=== PATIENT | female | born 1945 | race Caucasian/White ===

== ENCOUNTER 2016-11-24 11:04 | Emergency (ER) | payer MEDICARE, MEDICAID ==
[~2016-11-24] VITALS: Ht 162.6 cm; Wt 58.5 kg
[2016-11-24] MEDS ORDERED: Acetaminophen 500mg (ES) tab ORAL ONE (11:15)
[2016-11-24] MEDS ORDERED: Bacitracin Oint UD TOPIC ONE (11:15)
[2016-11-24] MEDS ORDERED: Lidocaine 1% 10mg/ml/Epi 0.005mg/ml 30ml vial INJ ONE (11:15)
[2016-11-24 11:21] VITALS: BP 120/71
[2016-11-24] MEDS ORDERED: ACETAMINOPHEN-1 EAC1 ORAL (12:55)
[2016-11-24] MEDS ORDERED: BACTRIM DS TAB1 EAC1 ORAL (12:55)
[2016-11-24] MEDS ORDERED: BACITRACIN15 GM TOPIC (12:55)
[2016-11-24] MEDS ORDERED: Bactrim DS (160mg/800mg) tab ORAL ONE (13:00)
[2016-11-24 13:18] VITALS: BP 144/75
--- NOTE | 2016-11-24 21:28 | Emergency Room Report ---
History of Present Illness General Chief Complaint: Laceration Source: Patient Present Illness HPI Patient with non-syncopal fall onto nose with cut. Some bleeding. No LOC. 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 + pain 4/10 - sharp, not radiate and swelling. Bleeding from inside of nose brief. Not swallow blood. No dizziness or MAGDALENO. No neck or extremity pain. No rashes. H/O bipolar disorder - states stable. No other rashes. Tetanus UTD. Allergies: Coded Allergies: PENICILLINS (Verified Allergy, Unknown, 11/24/16) Patient History Social History: Reports: smoking, Denies: drug use Social History Narrative with boyfriend Reviewed Nursing Documentation: PMH: Agreed, PSxH: Agreed Nursing Documentation-PMH Past Medical History: No History, Except For Hx Diabetes: Yes History Of Psychiatric Problem: Yes - anxiety depression bipolar Review of Systems All Other Systems: negative except mentioned in HPI Physical Exam Vital Signs Date Time Temp Pulse Resp B/P Pulse Ox O2 Delivery O2 Flow Rate FiO2 11/24/16 10:59 98.4 80 16 145/79 100 Room Air Sp02 EP Interpretation: reviewed, normal General Appearance: well appearing, no apparent distress Head: normocephalic Eyes: bilateral eye EOMI, bilateral eye PERRL, bilateral eye normal inspection ENT: hearing grossly normal, normal voice, other - swelling bridge nose - no septal hematoma (see skin) Neck: full range of motion, supple, no bony tend Respiratory: chest non-tender, lungs clear, no respiratory distress, speaking full sentences Cardiovascular #1: regular rate, rhythm Cardiovascular #2: 2+ radial (L) Gastrointestinal: normal inspection, non tender Musculoskeletal: back normal, digits/nails normal, gait/station normal, normal range of motion, non-tender, no calf tenderness, pelvis stable Neurologic: alert, oriented x3, motor strength/tone normal, DTRs symmetric, sensory intact, cerebellar normal, normal gait, speech normal Psychiatric: mood/affect normal Skin: laceration - bridge of nose = 1 cm total - contused and upsidedown Y shaped Procedures Laceration/Wound Repair Laceration/Wound Repair : Consent: Verbal Wound Location: face Wound's Depth, Shape: stellate, contused tissue Wound Length (cm): 1 Wound Explored: clean Betadine Prep?: Yes Anesthesia: Lidocaine w/ Epi Wound Debrided: none Suture Size/Type: 6:0 Layer Closure?: No Sterile Dressing Applied?: Yes Patient Tolerated: Well Complications: Other - lidocaine went down throat with some numbness Progress cosmetic closure Medical Decision Making Diagnostic Impression: Primary Impression: Nasal fracture Qualified Codes: S02.2XXB - Fracture of nasal bones, initial encounter for open fracture Additional Impression: laceration repair ER Course Patient post non-syncopal fall with nasal injury. Exam c/w fracture (though fairly good alignment) with laceration. Discussed no need for x-rays at this time, but needs sutures (also offered glue) as well as antibiotics. No LOC or neck pain. Patient sutured. Analgesic given. Tolerated well and improved. Patient stable for outpatient observation and treatment. Last Vital Signs Date Time Temp Pulse Resp B/P Pulse Ox O2 Delivery O2 Flow Rate FiO2 11/24/16 13:18 75 19 144/75 96 Room Air 11/24/16 12:24 98.4 Status: improved Disposition: HOME, SELF-CARE Condition: Improved Scripts Acetaminophen With Codeine (T#3) (TYLENOL #3 TAB*) Y Tab 1 TAB ORAL Q4H Y for For Pain, #10 TAB Prov: Obed Saba M.D. 11/24/16 Trimethoprim/Sulfamethoxazole 160/800* (BACTRIM DS TABLET*) 1 Each Tablet 1 TAB ORAL TWICE A DAY, #14 TAB Prov: Obed Saba M.D. 11/24/16 Bacitracin (Bacitracin) 28.4 Gm Oint...g. 1 APPLIC TOPIC BID, #14 GM Prov: Obed Saba M.D. 11/24/16 Referrals: NOT CHOSEN IPA/,REFERRING (PCP) Patient Instructions: Head Injury, Adult, Facial Laceration, Nasal Fracture Additional Instructions: Keep clean and dry. Sutures out in 6 days. Have someone wake you once tonight. See and ENT specialist in 10-14 days to see if this needs to be reduced/ adjusted. Obed Saba M.D. Nov 24, 2016 21:28
== END 2016-11-24 13:23 | disposition home or self-care (01) ==
LOC: EDBD 11:04 → EMR 12:51
DX: S01.21XA Laceration without foreign body of nose, initial encounter (principal); W45.8XXA Other foreign body or object entering through skin, initial encounter; Y92.9 Unspecified place or not applicable; E11.9 Type 2 diabetes mellitus without complications; F17.200 Nicotine dependence, unspecified, uncomplicated